=== PATIENT | female | born 1965 | race African-American/Black ===

== ENCOUNTER → 2016-10-09 | Outpatient (CLI) | payer BC | LOC: WI 08:02 | PROVIDERS: ATTEND Advanced Practice Midwife | DX: Z12.31 Encounter for screening mammogram for malignant neoplasm of breast (principal) | CPT/HCPCS: 77067; G0202 ==

== ENCOUNTER → 2017-10-20 | Outpatient (CLI) | payer BC ==
--- NOTE | 2017-10-20 09:26 | WOMENS IMAGING REPORT ---
EXAM DESCRIPTION: BILAT SCREENING MAMMO W/CAD COMPLETED DATE/TIME: 10/20/2017 8:20 am REASON FOR STUDY: ROUTINE SCREENING;Z12.31 Z12.31 ENCNTR SCREEN MAMMOGRAM FOR MALIGNANT NEOPLASM OF ZOHREH COMPARISON: [id number] TECHNIQUE: Standard craniocaudal and mediolateral oblique views of each breast recorded using [employer] acquisition. LIMITATIONS: None. FINDINGS: No masses, calcifications or architectural distortion. No areas of suspicion. Read with the assistance of CAD. .[facility] - R2 Cenova Version 1.3 .[facility] - R2 Cenova Version 1.3 .[facility] - R2 Cenova Version 2.4 .[facility] - R2 Cenova Version 2.4 .[facility] - R2 [employer] Version 9.2 IMPRESSION: NORMAL MAMMOGRAM. BIRADS 1. BREAST DENSITY: b. There are scattered areas of fibroglandular density. BIRAD: 1 NEGATIVE RECOMMENDATION: ROUTINE SCREENING COMMENT: The patient has been notified of the results by letter per SA requirements. Additional no tification policies are in place for contacting patient with suspicious or incomplete findings. Quality ID #225: The [employer] recommends an annual screening mammogram for women aged 40 years or over. This facility utilizes a reminder system to ensure that all patients receive reminder letters, and/or direct phone calls for appointments. This includes reminders for routine scr eening mammograms, diagnostic mammograms, or other Breast Imaging Interventions when appropriate. Th is patient will be placed in the appropriate reminder system. The [employer] (ACR) has developed recommendations for screening MRI of the breast s in certain patient populations, to be used in conjunction with mammography. Breast MRI surveillanc e may be appropriate for women with more than 20% lifetime risk of developing breast cancer as deter mined by genetic testing, significant family history of the disease, or history of mantle radiation f or Hodgkins Disease. ACR Practice Guidelines 2008. TECHNICAL DOCUMENTATION: FINDING NUMBER: (1) ASSESSMENT: (1) JOB ID: [id number] [employer]- All Rights Reserved Reading location - IP/workstation name: [facility]
== END ==
LOC: WI 08:28
PROVIDERS: ATTEND Midwife
DX: Z12.31 Encounter for screening mammogram for malignant neoplasm of breast (principal)
CPT/HCPCS: 77067

== ENCOUNTER 2017-11-27 09:57 | Inpatient (IN) | payer BC ==
[2017-11-27] MEDS ORDERED: ONDANSETRON HCL INJ/PF 4 MG/2 ML SDV IV ONE (10:22)
[2017-11-27] MEDS ORDERED: HYDROMORPHONE HCL INJ/PF 2 MG/ML AMPULE IV ONE ×2 (10:22→12:20)
[2017-11-27 10:25] LABS: ABSOLUTE LYMPHOCYTES (AUTO) 0.9 10^3/uL (0.5-4.7); ABSOLUTE MONOCYTES (AUTO) 0.3 10^3/uL (0.1-1.4); ABSOLUTE NEUT (AUTO) 11.9 10^3/uL (1.7-8.2); BASOPHILS % (AUTO) 0.1 % (0-2); LYMPHOCYTES % (AUTO) 6.9 % (13-45); MEAN CORPUSCULAR HEMOGLOBIN 30.3 pg (27.0-33.4); MEAN CORPUSCULAR HGB CONC 34.3 g/dL (32.0-36.0); MEAN CORPUSCULAR VOLUME 89 fl (80-97); MONOCYTES % (AUTO) 2.1 % (3-13); PLATELET COUNT 347 10^3/uL (150-450); RED BLOOD COUNT 4.29 10^6/uL (3.72-5.28); RED CELL DISTRIBUTION WIDTH 13.5 % (11.5-14.0); SEGMENTED NEUTROPHILS % (AUTO) 90.9 % (42-78); TOTAL CELLS COUNTED % (AUTO) 100 %; WHITE BLOOD COUNT 13.1 10^3/uL (4.0-10.5)
--- NOTE | 2017-11-27 10:43 | ER Document Report ---
ED GI/ - General Chief Complaint: Abdominal Pain Stated Complaint: ABDOMINAL PAIN Time Seen by Provider: 11/27/17 10:17 Mode of Arrival: Medic Information source: Patient TRAVEL OUTSIDE OF THE [place] IN LAST 30 DAYS: No - HPI Patient complains to provider of: Abdominal pain Notes: 11/27/17 10:39 Patient is here with complaints of abdominal pain with nausea vomiting. She states that the pain is in the epigastric area. Has been constant and quite severe. She was seen at an outside facility and was transferred here due to pain. She denies any chest pain or shortness of breath. She denies fevers. She denies diarrhea. No dysuria or hematuria. No rash. No injury. No headache, blurred vision, numbness, tingling, weakness. No other complaints at this time. - Related Data Allergies/Adverse Reactions: No Known Allergies Allergy (Verified 11/27/17 11:05) Past Medical History - Social History Smoking Status: Unknown if Ever Smoked Family History: Reviewed & Not Pertinent Review of Systems - Review of Systems -: Yes All other systems reviewed and negative Physical Exam - Vital signs Vitals: Temp Pulse BP Pulse Ox 97.5 F 83 127/70 H 100 11/27/17 10:20 11/27/17 10:20 11/27/17 10:20 11/27/17 10:20 - Notes Notes: GENERAL: alert, cooperative, nontoxic, no distress. Appears quite uncomfortable. HEAD: normocephalic, atraumatic EYES: conjunctiva pink without discharge, no external redness or swelling. EARS: no external swelling, no external redness NOSE: atraumatic, no external swelling MOUTH/THROAT: mucous membranes moist and pink, posterior pharynx without erythema, swelling, exudate. No trismus or drooling. NECK: soft, supple, full range of motion, no meningismus. CHEST: no distress, lungs clear and equal throughout. No wheezing, rales, rhonchi. CARDIAC: regular rate and rhythm, no murmur, normal capillary refill, normal pulses. No peripheral edema noted. ABDOMEN: Soft, tender in the epigastric and right upper quadrant with voluntary guarding. No rebound tenderness. No tenderness to the lower abdomen. No obvious mass. BACK: full range of motion, no CVA tenderness. EXTREMITIES: full range of motion of all extremities. No redness, no swelling. NEURO: alert and oriented x 3, no focal deficits, full range of motion of all extremities. PYSCH: appropriate mood, affect. Patient is cooperative. SKIN: pink, warm, dry, no rash. Course - Re-evaluation Re-evalutation: 11/27/17 11:05 Patient is resting comfortably at this time. Pain is significantly improved. I have updated her on current lab findings at this time. Potassium is low at 2.6, this will be replaced. Ultrasound currently pending. 11/27/17 12:48 Patient is nontoxic appearing with stable vitals. The patient is here with complaints of upper abdominal pain with nausea vomiting. No fever. Has an elevated white count of 13. Potassium was low at 2.6. LFTs are all normal. Ultrasound shows multiple gallstones. Lipase is elevated over 500. At this point patient appears to have gallstone pancreatitis. I have discussed the case with Dr. King the surgeon, he will come to the emergency department to evaluate the patient. He recommended IV fluid bolus, IV fluids at 125 an hour and n.p.o. status. 11/27/17 14:15 Patient was seen and evaluated by Dr. King. He would like to admit the patient to the hospital for further evaluation and management. - Vital Signs Vital signs: Temp Pulse Resp BP Pulse Ox 97.5 F 83 12 142/81 H 99 11/27/17 10:20 11/27/17 10:20 11/27/17 13:01 11/27/17 13:01 11/27/17 13:01 - Laboratory Result Diagrams: 11/27/17 10:12 11/27/17 10:12 Laboratory results interpreted by me: 11/27/17 11/27/17 11/27/17 10:12 10:12 13:18 WBC 13.1 H Seg Neutrophils % 90.9 H Lymphocytes % 6.9 L Monocytes % 2.1 L Absolute Neutrophils 11.9 H Potassium 2.6 L* Glucose 147 H Lipase 517.6 H Urine Ketones 20 H Urine Ascorbic Acid 20 H - Diagnostic Test Radiology reviewed: Image reviewed, Reports reviewed - Chest x-ray unremarkable. Right upper quadrant ultrasound shows multiple gallstones. - EKG Interpretation by Me EKG shows normal: Sinus rhythm, Anderson, Intervals, QRS Complexes Rate: Normal When compared to previous EKG there are: Previous EKG unavailable Additional EKG results interpreted by me: 11/27/17 11:05 Slight flattening of the T waves in lead III as well as aVF and V4 V5. No EKGs to compare this to. Discharge - Discharge Clinical Impression: Acute gallstone pancreatitis Condition: Stable Disposition: ADMITTED INPATIENT Admitting Provider: Surgicalist - [facility] Unit Admitted: Surgical Floor
[2017-11-27 10:46] LABS: ALANINE AMINOTRANSFERASE 33 U/L (9-52); ALBUMIN 4.3 g/dL (3.5-5.0); ALKALINE PHOSPHATASE 45 U/L (38-126); ANION GAP 12 (5-19); ASPARTATE AMINO TRANSFERASE 30 U/L (14-36); BILIRUBIN,DIRECT 0.2 mg/dL (0.0-0.4); BILIRUBIN,TOTAL 0.5 mg/dL (0.2-1.3); BLOOD UREA NITROGEN 14 mg/dL (7-20); CALCIUM 9.5 mg/dL (8.4-10.2); CARBON DIOXIDE 29 mmol/L (22-30); CHLORIDE 99 mmol/L (98-107); GLUCOSE 147 mg/dL (75-110); LIPASE 517.6 U/L (23-300); SODIUM 139.7 mmol/L (137-145); TOTAL PROTEIN 7.7 g/dL (6.3-8.2)
[2017-11-27 10:52] LABS: POTASSIUM 2.6 mmol/L (3.6-5.0)
[2017-11-27] MEDS ORDERED: POTASSIUM CHLORIDE 10 MEQ TABLET.SA PO ONE (11:01)
--- NOTE | 2017-11-27 11:11 | RADIOLOGY REPORT (SQ) ---
EXAM DESCRIPTION: CHEST SINGLE VIEW COMPLETED DATE/TIME: 11/27/2017 10:52 am REASON FOR STUDY: epigastric, ruq pain COMPARISON: None. EXAM PARAMETERS: NUMBER OF VIEWS: One view. TECHNIQUE: Single frontal radiographic view of the chest acquired. RADIATION DOSE: NA LIMITATIONS: None. FINDINGS: LUNGS AND PLEURA: No opacities, masses or pneumothorax. No pleural effusion. MEDIASTINUM AND HILAR STRUCTURES: No masses. Contour normal. HEART AND VASCULAR STRUCTURES: Heart normal in size. Normal vasculature. BONES: No acute findings. HARDWARE: None in the chest. OTHER: No other significant finding. IMPRESSION: NO ACUTE RADIOGRAPHIC FINDING IN THE CHEST. TECHNICAL DOCUMENTATION: JOB ID: [id number] [employer]- All Rights Reserved Reading location - IP/workstation name: [email or web address]
--- NOTE | 2017-11-27 11:50 | RADIOLOGY REPORT (SQ) ---
EXAM DESCRIPTION: U/S ABDOMEN LIMITED W/O DOP COMPLETED DATE/TIME: 11/27/2017 11:39 am REASON FOR STUDY: epigastric, ruq pain COMPARISON: None. TECHNIQUE: Dynamic and static grayscale images acquired of the abdomen and recorded on PACS. Additio nal selected color Doppler and spectral images recorded. LIMITATIONS: None. FINDINGS: PANCREAS: No masses. Visualized pancreatic duct normal caliber. LIVER: No masses. Echotexture normal. LIVER VASCULATURE: Normal directional flow of the main portal vein. GALLBLADDER: There is increased echogenicity in the gallbladder with distal shadowing most consistent with multiple gallstones. Normal wall thickness. No pericholecystic fluid. ULTRASOUND-DETECTED CANAS'S SIGN: Negative. INTRAHEPATIC DUCTS AND COMMON DUCT: CBD and intrahepatic ducts normal caliber. No filling defects. INFERIOR VENA CAVA: Normal flow. AORTA: No aneurysm. RIGHT KIDNEY: 12 cm in length. Normal echogenicity. No solid or suspicious masses. No hydronephrosis . No calcifications. PERITONEAL AND RIGHT PLEURAL SPACE: No ascites or effusions. OTHER: No other significant findings. IMPRESSION: Findings consistent with multiple gallstones. No other significant intra-abdominal abno rmalities were identified. Other findings as noted above TECHNICAL DOCUMENTATION: JOB ID: [id number] [employer]- All Rights Reserved Reading location - IP/workstation name: [email or web address]
[2017-11-27] MEDS ORDERED: NORMAL SALINE 1000 ML 1,000 ML IV PRN ×2 (12:46→15:17)
[2017-11-27] MEDS ORDERED: NORMAL SALINE 1000 ML 1,000 ML IV ONE (12:46)
--- NOTE | 2017-11-27 13:37 | EKG REPORT ---
SEVERITY:- ABNORMAL ECG - SINUS RHYTHM PROBABLE LEFT ATRIAL ABNORMALITY NONSPECIFIC T ABNORMALITIES, LATERAL LEADS : Confirmed by: Cortez Gil MD 27-Nov-2017 13:36:32
[2017-11-27 13:43] LABS: APPEARANCE,URINE SLIGHTLY-CLOUDY; BILIRUBIN,URINE NEGATIVE (NEGATIVE); COLOR,URINE YELLOW; GLUCOSE, URINE NEGATIVE (NEGATIVE); KETONES,URINE 20 mg/dL (NEGATIVE); LEUKOCYTE ESTERASE,URINE NEGATIVE (NEGATIVE); NITRITE,URINE NEGATIVE (NEGATIVE); PROTEIN,URINE NEGATIVE (NEGATIVE); URINE SPECIFIC GRAVITY 1.023; UROBILINOGEN,URINE NEGATIVE mg/dL (<2.0)
--- NOTE | 2017-11-27 14:24 | PDOC H&P ---
History of Present Illness Admission Date/PCP: 11/27/17 Patient complains of: epigastric pain, n/v History of Present Illness: VASQUEZ DIXON is a 52 year old female with HTN who c/o sudden onset of epigastric pain this AM radiated to the back, intense nausea and vomiting. ER workup included a GB ultrasound with multiple gallstones and an elevated lipase. Currently, she is feeling better and she is almost pain free. Past Medical History Cardiac Medical History: Reports: Hypertension Past Surgical History Past Surgical History: Reports: Tubal Ligation Social History Smoking Status: Never Smoker Frequency of Alcohol Use: Rare Hx Recreational Drug Use: No Family History Parental Family History Reviewed: No Children Family History Reviewed: No Sibling(s) Family History Reviewed.: No Medication/Allergy Allergies/Adverse Reactions: No Known Allergies Allergy (Verified 11/27/17 11:05) Physical Exam Vital Signs: Temp Pulse Resp BP Pulse Ox 97.5 F 83 12 142/81 H 99 11/27/17 10:20 11/27/17 10:20 11/27/17 13:01 11/27/17 13:01 11/27/17 13:01 Intake & Output 11/26/17 11/27/17 11/28/17 06:59 06:59 06:59 Weight 69.853 kg General appearance: PRESENT: no acute distress, cooperative Head exam: PRESENT: atraumatic Eye exam: PRESENT: EOMI Mouth exam: PRESENT: moist Neck exam: PRESENT: full ROM Respiratory exam: PRESENT: clear to auscultation violeta Cardiovascular exam: PRESENT: RRR GI/Abdominal exam: PRESENT: soft, tenderness - right upper quadrant Extremities exam: PRESENT: full ROM Musculoskeletal exam: PRESENT: full ROM Neurological exam: PRESENT: alert, altered Results Laboratory Results: 11/27/17 10:12 11/27/17 10:12 11/27/17 11/27/17 11/27/17 10:12 10:12 13:18 WBC 13.1 H RBC 4.29 Hgb 13.0 Hct 38.0 MCV 89 MCH 30.3 MCHC 34.3 RDW 13.5 Plt Count 347 Seg Neutrophils % 90.9 H Lymphocytes % 6.9 L Monocytes % 2.1 L Eosinophils % 0.0 Basophils % 0.1 Absolute Neutrophils 11.9 H Absolute Lymphocytes 0.9 Absolute Monocytes 0.3 Absolute Eosinophils 0.0 Absolute Basophils 0.0 Sodium 139.7 Potassium 2.6 L* Chloride 99 Carbon Dioxide 29 Anion Gap 12 BUN 14 Creatinine 0.55 Est GFR ( Amer) > 60 Est GFR (Non-Af Amer) > 60 Glucose 147 H Calcium 9.5 Total Bilirubin 0.5 AST 30 ALT 33 Alkaline Phosphatase 45 Total Protein 7.7 Albumin 4.3 Lipase 517.6 H Urine Color YELLOW Urine Appearance SLIGHTLY-CLOUDY Urine pH 6.0 Ur Specific Friedens 1.023 Urine Protein NEGATIVE Urine Glucose (UA) NEGATIVE Urine Ketones 20 H Urine Blood NEGATIVE Urine Nitrite NEGATIVE Ur Leukocyte Esterase NEGATIVE Urine WBC (Auto) 3 Urine RBC (Auto) 7 11/27/17 10:12 Troponin I < 0.012 Impressions: Abdomen Ultrasound 11/27/17 10:22 IMPRESSION: Findings consistent with multiple gallstones. No other significant intra-abdominal abnormalities were identified. Other findings as noted above Chest X-Ray 11/27/17 10:22 IMPRESSION: NO ACUTE RADIOGRAPHIC FINDING IN THE CHEST. Assessment & Plan - Diagnosis (1) Gallstone pancreatitis Is this a current diagnosis for this admission?: Yes Plan: A/ Gallstone pancreatitis Cholelithiasis HTN Slight Leukocytosis P/ Admit NPO except for ice chips NS 125 mL/hr Morphine 1 mg IVP q2 hrs prn pain Zosyn 3.375 gr IVPB q6 daily monitoring of CBC and CMP with lipase When the pancreatitis improves, the patient can undergo laparoscopic cholecystectomy, possible open, possible cholangiogram during this hospitalization
[2017-11-27] MEDS ORDERED: PIPERACILLIN/TAZOBACTAM 3.375 GM VIAL IV ONE (14:28)
[2017-11-27] MEDS ORDERED: ONDANSETRON HCL INJ/PF 4 MG/2 ML SDV IV PRN (15:16)
[2017-11-27] MEDS: MORPHINE SULFATE 10 MG/ML INJ IV PRN ×2 (15:45→21:05)
[2017-11-27] MEDS: HEPARIN SOD (PORCINE) 5,000 UNIT/ML 1 ML SYRINGE SUBCUT SCH (19:14)
[2017-11-27] MEDS ORDERED: MORPHINE SULFATE 10 MG/ML INJ ONE (20:57)
[2017-11-27] MEDS: PIPERACILLIN SODIUM/TAZOBACTAM 3.375 GM in NORMAL SALINE 100 ML IV SCH (21:31)
[2017-11-27] MEDS ORDERED: PIPERACILLIN SODIUM/TAZOBACTAM 3.375 GM in NORMAL SALINE 100 ML IV SCH (22:00)
[2017-11-27] MEDS ORDERED: HEPARIN SOD (PORCINE) 5,000 UNIT/ML 1 ML SYRINGE SUBCUT SCH (22:00)
[2017-11-28] MEDS: PIPERACILLIN SODIUM/TAZOBACTAM 3.375 GM in NORMAL SALINE 100 ML IV SCH ×3 (05:41→21:35)
[2017-11-28] MEDS: HEPARIN SOD (PORCINE) 5,000 UNIT/ML 1 ML SYRINGE SUBCUT SCH (05:41)
[2017-11-28 06:27] LABS: HEMATOCRIT 36.8 % (36.0-47.0); HEMOGLOBIN 12.7 g/dL (12.0-15.5); MEAN CORPUSCULAR HEMOGLOBIN 30.5 pg (27.0-33.4); MEAN CORPUSCULAR HGB CONC 34.6 g/dL (32.0-36.0); MEAN CORPUSCULAR VOLUME 88 fl (80-97); PLATELET COUNT 301 10^3/uL (150-450); RED BLOOD COUNT 4.18 10^6/uL (3.72-5.28); RED CELL DISTRIBUTION WIDTH 13.4 % (11.5-14.0)
[2017-11-28 06:54] LABS: ALANINE AMINOTRANSFERASE 60 U/L (9-52); ALBUMIN 3.5 g/dL (3.5-5.0); ALKALINE PHOSPHATASE 46 U/L (38-126); ANION GAP 9 (5-19); ASPARTATE AMINO TRANSFERASE 45 U/L (14-36); BILIRUBIN,DIRECT 0.2 mg/dL (0.0-0.4); BLOOD UREA NITROGEN 7 mg/dL (7-20); CALCIUM 8.5 mg/dL (8.4-10.2); CARBON DIOXIDE 28 mmol/L (22-30); CHLORIDE 104 mmol/L (98-107); GLUCOSE 105 mg/dL (75-110); LIPASE 107.1 U/L (23-300); POTASSIUM 3.3 mmol/L (3.6-5.0); SODIUM 141.2 mmol/L (137-145); TOTAL PROTEIN 6.4 g/dL (6.3-8.2)
[2017-11-28] MEDS ORDERED: ROCURONIUM BROMIDE INJ 50 MG/5 ML VIAL IV ONE (09:11)
[2017-11-28] MEDS ORDERED: SUCCINYLCHOLINE CHLORIDE INJ 200 MG/10 ML VIAL ONE (09:11)
--- NOTE | 2017-11-28 10:31 | PDOC PROGRESS REPORT ---
Subjective Progress Note for:: 11/28/17 Subjective:: patient comfortable Reason For Visit: ACUTE GALLSTONE PANCREATITIS Physical Exam Vital Signs: Temp Pulse Resp BP Pulse Ox 98.4 F 88 18 128/78 H 98 11/28/17 07:35 11/28/17 07:35 11/28/17 07:35 11/28/17 07:35 11/28/17 07:35 General appearance: PRESENT: no acute distress Respiratory exam: PRESENT: clear to auscultation violeta Cardiovascular exam: PRESENT: RRR GI/Abdominal exam: PRESENT: soft Results Laboratory Results: 11/28/17 05:57 11/28/17 05:57 11/28/17 11/28/17 05:57 05:57 WBC 13.0 H RBC 4.18 Hgb 12.7 Hct 36.8 MCV 88 MCH 30.5 MCHC 34.6 RDW 13.4 Plt Count 301 Sodium 141.2 Potassium 3.3 L Chloride 104 Carbon Dioxide 28 Anion Gap 9 BUN 7 Creatinine 0.60 Est GFR ( Amer) > 60 Est GFR (Non-Af Amer) > 60 Glucose 105 Calcium 8.5 Total Bilirubin 1.0 AST 45 H ALT 60 H Alkaline Phosphatase 46 Total Protein 6.4 Albumin 3.5 Lipase 107.1 Impressions: Abdomen Ultrasound 11/27/17 10:22 IMPRESSION: Findings consistent with multiple gallstones. No other significant intra-abdominal abnormalities were identified. Other findings as noted above Chest X-Ray 11/27/17 10:22 IMPRESSION: NO ACUTE RADIOGRAPHIC FINDING IN THE CHEST. Assessment & Plan - Diagnosis (1) Gallstone pancreatitis Is this a current diagnosis for this admission?: Yes - Plan Summary Plan Summary: A/ Gallstone pancreatitits Cholelithiasis VSS, AF LFT' normal except for slight increased AST/ALT Lipase normal PE unremarkable P/ laparoscopic cholecystectomy, possible open, possible cholangiogram Procedure, risks, benefits, complications, including bleeding from the liver and or injury of the CBD have been explained to the patient her questions were answered and she decides to proceed
[2017-11-28] MEDS ORDERED: MIDAZOLAM 2 MG/2 ML INJ ONE (11:01)
[2017-11-28] MEDS ORDERED: DEXAMETHASONE SOD PHOSPHATE INJ 4 MG/1 ML VIAL ONE (11:01)
[2017-11-28] MEDS ORDERED: FENTANYL CITRATE INJ/PF 100 MCG/2 ML AMPUL ONE ×2 (11:01→14:18)
[2017-11-28] MEDS ORDERED: ONDANSETRON HCL INJ/PF 4 MG/2 ML SDV ONE (11:01)
[2017-11-28] MEDS ORDERED: PROPOFOL INJ 200 MG/20 ML VIAL IV ONE (11:02)
[2017-11-28] MEDS ORDERED: ACETAMINOPHEN 100 ML IV ONE (11:02)
[2017-11-28] MEDS ORDERED: BUPIVACAINE HCL 0.5%-EPI 1:200000 INJ/PF 30 ML VIAL ONE (11:51)
[2017-11-28] MEDS ORDERED: DIPHENHYDRAMINE HCL 50 MG/ML VIAL IV PRN (12:05)
[2017-11-28] MEDS ORDERED: FENTANYL CITRATE INJ/PF 100 MCG/2 ML AMPUL IV PRN ×3 (12:05)
[2017-11-28] MEDS ORDERED: MEPERIDINE HCL/PF INJ 25 MG/1 ML DISP.SYRIN IV PRN (12:05)
[2017-11-28] MEDS ORDERED: PROMETHAZINE HCL INJ 25 MG/1 ML VIAL IV PRN ×2 (12:05)
--- NOTE | 2017-11-28 14:11 | Operative Report ---
Operative Report DATE OF SURGERY: 11/28/17 PREOPERATIVE DIAGNOSIS: acute cholecystitis. cholelithiasis. Gallstone pancreatitis POSTOPERATIVE DIAGNOSIS: same OPERATION: laparosocic cholecystectomy SURGEON: JAKE PINEDA ANESTHESIA: GA - plus local TISSUE REMOVED OR ALTERED: gallbalddsilvana COMPLICATIONS: none ESTIMATED BLOOD LOSS: < 5 mL INTRAOPERATIVE FINDINGS: severely thickened gallbladder, fille with bile PROCEDURE: Laparoscopic cholecystectomy
[2017-11-28] MEDS: AMLODIPINE BESYLATE 5 MG TABLET PO SCH (14:20)
[2017-11-28] MEDS: LOSARTAN POTASSIUM 50 MG TABLET PO SCH (14:20)
[2017-11-28] MEDS: HYDROCHLOROTHIAZIDE 25 MG TABLET PO SCH (14:20)
[2017-11-28] MEDS ORDERED: KETOROLAC TROMETHAMINE INJ/PF 30 MG/1 ML SDV ONE (14:39)
--- NOTE | 2017-11-28 15:01 | EKG REPORT ---
SEVERITY:- ABNORMAL ECG - SINUS RHYTHM PROBABLE LEFT ATRIAL ABNORMALITY PROBABLE LEFT VENTRICULAR HYPERTROPHY : Confirmed by: Cortez Gil MD 28-Nov-2017 15:00:50
[2017-11-28] MEDS: FAMOTIDINE INJ/PF 20 MG/2 ML SDV IV SCH (18:54)
--- NOTE | 2017-11-28 20:53 | OPERATIVE REPORT E ---
Operative Report NAME: VASQUEZ DIXON : 1965 AGE: 52Y DATE OF SURGERY: 11/28/2017 ROOM: 206 PREOPERATIVE DIAGNOSES: 1. Acute cholecystitis with cholelithiasis. 2. Gallstone pancreatis. POSTOPERATIVE DIAGNOSES: 1. Acute cholecystitis with cholelithiasis. 2. Gallstone pancreatitis. PROCEDURE: Laparoscopic cholecystectomy. SURGEON: JAKE PINEDA M.D. MANUFACTURING QUALITY ENGINEER: None. ESTIMATED BLOOD LOSS: Less than 5 mL. COMPLICATIONS: None. FLUIDS: 700 mL. URINE OUTPUT: Not monitored DRAIN: 10 mm flat Victor Hugo-Rahman drain INDICATION AND FINDINGS: The patient is a healthy 52-year-old obese female, who presented to the emergency room yesterday with a history of abdominal pain with elevated liver enzymes and lipase as per gallstone pancreatitis. An ultrasound of the gallbladder was done revealing several gallstones and normal size of the common bile duct and one stone impacted inside the gallbladder neck. The liver enzymes were almost normal today with a normal lipase. The patient was asymptomatic and a decision was made to take him to surgery today for laparoscopic cholecystectomy, possible open, possible cholangiogram. Procedure risks, benefits, and complications were explained to the patient including possibility of liver injury or injury to the common bile duct, which may require outside repair. The patient's questions were answered. She decided to proceed. DESCRIPTION OF PROCEDURE: Procedure was done in the operating room. The patient was placed in the supine position and general anesthesia was induced by endotracheal intubation. Her abdomen was prepped and draped in the usual fashion. An incision was made just above the umbilicus and the skin was tethered with towel clips and a 5 mm port with Optiview adaptor, and the scope were inserted through the abdominal wall and into the peritoneal cavity. A CO2 pneumoperitoneum was then established. Under direct visualization, three additional ports, a 12 mm and two 5 mm ports were placed in the epigastrium and right lateral quadrant of the abdomen. The patient was placed in a reverse Trendelenburg position with the right side elevated. The gallbladder was grasped at the level of the fundus and found to be very thickened and inflamed. At this point, a laparoscopic needle was inserted through the epigastric port, connected to a 60 mL syringe and about 40 mL of green bile was aspirated. This was sent for aerobic and anaerobic culture and for Gram stain. Once the gallbladder was emptied, this was grasped at the level of the fundus, elevated and retroflexed. The cystic neck was then grasped and pulled toward the patient's right to expose the triangle of Calot. The critical view of safety was painstakingly obtained by dividing the peritoneal attachments and the gallbladder neck and body both medially and laterally, and dissection was continued more distal until the cystic duct was identified. Once the critical view of safety was obtained, an opening was obtained posterior to the cystic duct. This was circumferentially dissected and found to be very thickened and inflamed because of surrounding inflammation. A decision was made to divide the cystic duct by using a laparoscopic stapler. This was divided with a laparoscopic endo-JAYLENE with bue load. After this, the gallbladder was easily dissected off the liver bed using a hook cautery and extracted from the peritoneal cavity using an Endobag through the epigatrium port site. The CO2 pneumoperitoneum was then reestablished. The liver bed was examined and found to be free from active bleeding. The abdominal wall was irrigated with 2 L of warm normal saline, which was almost completely aspirated. Under direct visualization, using a fascial closure device, a xllrfa-ab-dyrew 0-Vicryl suture was placed through the epigastric port and left untied. Through the same 12 mm port, a 10 mm flat Victor Hugo-Rahman drain was inserted and set in the right upper quadrant port site, placed under the liver in the gallbladder fossa. At this point, all instruments were removed, the ports were removed, the CO2 pneumoperitoneum was released, and the drain was secured to the skin with a 2-0 nylon suture. The fascial defect of the umbilicus was closed with the previously placed 0-Vicryl suture. All ports were then removed and the skin was closed with 4-0 Vicryl running subcuticular suture with Dermabond applied. The patient tolerated the procedure well, was extubated and transferred to the recovery room in satisfactory condition. DICTATING PHYSICIAN: JAKE PINEDA M.D. [id number] PHY#: [id number] ID: [id number] JOB#: [id number] ACCT: [id number] cc:JAKE PINEDA M.D. > MTDD
[2017-11-28] MEDS: MORPHINE SULFATE 10 MG/ML INJ IV PRN (21:36)
[2017-11-29] MEDS: FAMOTIDINE INJ/PF 20 MG/2 ML SDV IV SCH (06:01)
[2017-11-29] MEDS: PIPERACILLIN SODIUM/TAZOBACTAM 3.375 GM in NORMAL SALINE 100 ML IV SCH ×3 (06:01→21:39)
[2017-11-29] MEDS ORDERED: MORPHINE SULFATE 10 MG/ML INJ ONE (06:10)
[2017-11-29] MEDS: MORPHINE SULFATE 10 MG/ML INJ IV PRN ×2 (06:14→11:12)
[2017-11-29 07:36] LABS: ABSOLUTE LYMPHOCYTES (AUTO) 2.5 10^3/uL (0.5-4.7); ABSOLUTE MONOCYTES (AUTO) 0.6 10^3/uL (0.1-1.4); ABSOLUTE NEUT (AUTO) 7.6 10^3/uL (1.7-8.2); BASOPHILS % (AUTO) 0.3 % (0-2); EOSINOPHILS % (AUTO) 0.2 % (0-6); HEMATOCRIT 31.2 % (36.0-47.0); LYMPHOCYTES % (AUTO) 22.9 % (13-45); MEAN CORPUSCULAR HEMOGLOBIN 31.1 pg (27.0-33.4); MEAN CORPUSCULAR HGB CONC 35.1 g/dL (32.0-36.0); MEAN CORPUSCULAR VOLUME 89 fl (80-97); PLATELET COUNT 265 10^3/uL (150-450); RED BLOOD COUNT 3.52 10^6/uL (3.72-5.28); RED CELL DISTRIBUTION WIDTH 13.6 % (11.5-14.0); SEGMENTED NEUTROPHILS % (AUTO) 70.6 % (42-78); TOTAL CELLS COUNTED % (AUTO) 100 %; WHITE BLOOD COUNT 10.7 10^3/uL (4.0-10.5)
[2017-11-29 07:56] LABS: ALANINE AMINOTRANSFERASE 90 U/L (9-52); ALBUMIN 2.8 g/dL (3.5-5.0); ALKALINE PHOSPHATASE 50 U/L (38-126); ANION GAP 7 (5-19); ASPARTATE AMINO TRANSFERASE 49 U/L (14-36); BILIRUBIN,DIRECT 0.5 mg/dL (0.0-0.4); BILIRUBIN,TOTAL 0.7 mg/dL (0.2-1.3); BLOOD UREA NITROGEN 10 mg/dL (7-20); CALCIUM 7.6 mg/dL (8.4-10.2); CARBON DIOXIDE 23 mmol/L (22-30); CHLORIDE 112 mmol/L (98-107); GLUCOSE 83 mg/dL (75-110); POTASSIUM 3.2 mmol/L (3.6-5.0); TOTAL PROTEIN 5.7 g/dL (6.3-8.2)
[2017-11-29] MEDS: HEPARIN SOD (PORCINE) 5,000 UNIT/ML 1 ML SYRINGE SUBCUT SCH ×2 (09:22→17:13)
[2017-11-29] MEDS: LOSARTAN POTASSIUM 50 MG TABLET PO SCH (09:23)
[2017-11-29] MEDS: AMLODIPINE BESYLATE 5 MG TABLET PO SCH (09:24)
[2017-11-29] MEDS: HYDROCHLOROTHIAZIDE 25 MG TABLET PO SCH (09:24)
[2017-11-29] MEDS ORDERED: ACETAMINOPHEN 325 MG TABLET PO ONE (12:54)
--- NOTE | 2017-11-29 12:59 | PDOC PROGRESS REPORT ---
Subjective Progress Note for:: 11/29/17 Subjective:: comfortable, tolerating po well Reason For Visit: ACUTE GALLSTONE PANCREATITIS,11/28/17 HAD A Physical Exam Vital Signs: Temp Pulse Resp BP Pulse Ox 98.8 F 79 18 109/65 96 11/29/17 11:10 11/29/17 11:10 11/29/17 11:10 11/29/17 11:10 11/29/17 11:10 Intake & Output 11/28/17 11/29/17 11/30/17 06:59 06:59 06:59 Intake Total 2100 Output Total 1700 870 Balance -1700 1230 General appearance: PRESENT: no acute distress Respiratory exam: PRESENT: clear to auscultation violeta Cardiovascular exam: PRESENT: RRR GI/Abdominal exam: PRESENT: soft, other - all incisions are c/d/i Results Laboratory Results: 11/29/17 06:57 11/29/17 06:57 11/29/17 11/29/17 06:57 06:57 WBC 10.7 H RBC 3.52 L Hgb 11.0 L Hct 31.2 L MCV 89 MCH 31.1 MCHC 35.1 RDW 13.6 Plt Count 265 Seg Neutrophils % 70.6 Lymphocytes % 22.9 Monocytes % 6.0 Eosinophils % 0.2 Basophils % 0.3 Absolute Neutrophils 7.6 Absolute Lymphocytes 2.5 Absolute Monocytes 0.6 Absolute Eosinophils 0.0 Absolute Basophils 0.0 Sodium 142.0 Potassium 3.2 L Chloride 112 H Carbon Dioxide 23 Anion Gap 7 BUN 10 Creatinine 0.60 Est GFR ( Amer) > 60 Est GFR (Non-Af Amer) > 60 Glucose 83 Calcium 7.6 L Total Bilirubin 0.7 AST 49 H ALT 90 H Alkaline Phosphatase 50 Total Protein 5.7 L Albumin 2.8 L Lipase 65.0 Impressions: Abdomen Ultrasound 11/27/17 10:22 IMPRESSION: Findings consistent with multiple gallstones. No other significant intra-abdominal abnormalities were identified. Other findings as noted above Chest X-Ray 11/27/17 10:22 IMPRESSION: NO ACUTE RADIOGRAPHIC FINDING IN THE CHEST. Assessment & Plan - Diagnosis (1) Gallstone pancreatitis Is this a current diagnosis for this admission?: Yes (2) Acute cholecystitis with chronic cholecystitis Is this a current diagnosis for this admission?: Yes - Plan Summary Plan Summary: A/ POD#1 after laparoscopic cholecystectomy for acute on chronic cholecystitis with cholelithiasis VSS, AF DAVIDA output 85 mL blood work shows normal CBC Slight elevated ALT/AST with normal total bilirubin Abdomen soft regular diet tolerated P/ Continue IV abx discharge tomorrow
[2017-11-29] MEDS ORDERED: ACETAMINOPHEN 325 MG TABLET PO PRN (13:35)
[2017-11-29] MEDS ORDERED: TRAMADOL HCL 50 MG TABLET PO PRN (20:24)
[2017-11-29] MEDS ORDERED: BISACODYL 10 MG SUPP.RECT PR ONE (21:00)
[2017-11-29] MEDS ORDERED: FAMOTIDINE 20 MG TABLET PO SCH (22:00)
[2017-11-30] MEDS: PIPERACILLIN SODIUM/TAZOBACTAM 3.375 GM in NORMAL SALINE 100 ML IV SCH (05:05)
[2017-11-30] MEDS: HEPARIN SOD (PORCINE) 5,000 UNIT/ML 1 ML SYRINGE SUBCUT SCH (05:06)
[2017-11-30 09:40] VITALS: BP 126/70
--- NOTE | 2017-11-30 22:09 | DISCHARGE SUMMARY E ---
Discharge Summary NAME: VASQUEZ DIXON : 1965 AGE: 52Y ADMITTED: 11/27/2017 DISCHARGED: 11/30/2017 FINAL DIAGNOSIS: 1. Acute cholecystitis, cholelithiasis. 2. Status post laparoscopic cholecystectomy by Dr. King. SUMMARY OF HOSPITALIZATION: The patient is a 52-year-old female who presents to the emergency department by ground rescue complaining of abdominal pain, nausea, and vomiting. She is found to have multiple gallstones by ultrasonography and an elevated lipase level. Common bile duct was felt to be within normal limits. The patient was admitted to the surgical service for gallstone pancreatitis. The patient was taken to the operating room by Dr. Hernesto King on 11/28/2017 where she underwent laparoscopic cholecystectomy. She was found to have an acutely inflamed gallbladder. A drain was left in. Postoperatively she did well, had no complications. Diet was advanced and she tolerated this well. Pain was adequately managed. By the second postoperative day she was felt to receive maximum benefit from the hospitalization and was discharged home. DISPOSITION: The patient is discharged home to the care of the family. FOLLOW UP: [facility] in 1-2 weeks; anticipate some drainage from her drain site and take Tylenol and Motrin p.r.n. pain. DICTATING PHYSICIAN: KT IQBAL M.D. [id number] MARLONY#: [id number] ID: [id number] JOB#: [id number] ACCT: [id number] cc:KT IQBAL M.D. >
== END 2017-11-30 10:30 | disposition home or self-care (01) | DRG 417 ==
LOC: ER 09:57 → EH 14:22 → 2N 16:33
PROVIDERS: ADMIT Surgery; ATTEND Surgery
PROC: 0FT44ZZ Resection of Gallbladder, Percutaneous Endoscopic Approach (ICD-10-PCS; principal; 2017-11-28 12:30)
DX: K80.00 Calculus of gallbladder with acute cholecystitis without obstruction (principal); K85.10 Biliary acute pancreatitis without necrosis or infection; R10.13 Epigastric pain; I10 Essential (primary) hypertension
CPT/HCPCS: 36415; 71045; 76705; 790; 80053; 81001; 83690; 84484; 85025; 85027; 87070; 87075; 87205; 88304; 93005; 93010; 96361; 96374; 96376; 99285; J0131; J0330; J1100; J1170; J1644; J1885; J2250; J2270; J2405; J2543; J2704; J3010; J3490; J7030; S0028

== ENCOUNTER → 2019-05-26 | Outpatient (CLI) | payer BC ==
--- NOTE | 2019-05-26 15:18 | WOMENS IMAGING REPORT ---
EXAM DESCRIPTION: BILAT SCREENING MAMMO W/CAD COMPLETED DATE/TIME: 05/26/2019 10:48 am REASON FOR STUDY: Z12.31 SCREENING MAMMO Z12.31 ENCNTR SCREEN MAMMOGRAM FOR MALIGNANT NEOPLASM OF B RE COMPARISON: Multiple since 2008 EXAM PARAMETERS: Standard craniocaudal and mediolateral oblique views of each breast recorded using digital acquisition. Read with the assistance of CAD. .[facility] - [employer]ender Version 9.2 LIMITATIONS: None. FINDINGS: No suspicious masses, suspicious calcifications or architectural distortion. No areas of c oncern. IMPRESSION: Negative MAMMOGRAM. BIRADS 1 BREAST DENSITY: c. The breasts are heterogeneously dense, which may obscure small masses. BIRAD: ASSESSMENT: 1 NEGATIVE RECOMMENDATION: ROUTINE SCREENING Please continue yearly bilateral screening mammography/tomosynthesis in May 2020. COMMENT: The patient has been notified of the results by letter per [place] requirements. Additional no tification policies are in place for contacting patient with suspicious or incomplete findings. Quality ID #[id number]: The [employer] recommends an annual screening mammogram for women aged 40 years or over. This facility utilizes a reminder system to ensure that all patients receive reminder letters, and/or direct phone calls for appointments. This includes reminders for routine scr eening mammograms, diagnostic mammograms, or other Breast Imaging Interventions when appropriate. Th is patient will be placed in the appropriate reminder system. TECHNICAL DOCUMENTATION: FINDING NUMBER: (1) ASSESSMENT: (1) JOB ID: [id number] [employer]- All Rights Reserved Reading location - IP/workstation name: [email or web address]
== END ==
LOC: WI 10:35
PROVIDERS: ATTEND Obstetrics & Gynecology
DX: Z12.31 Encounter for screening mammogram for malignant neoplasm of breast (principal)
CPT/HCPCS: 77067

== ENCOUNTER → 2020-06-05 | Outpatient (CLI) | payer BC ==
--- NOTE | 2020-06-05 15:24 | WOMENS IMAGING REPORT ---
EXAM DESCRIPTION: 3D SCREENING MAMMO BILAT IMAGES COMPLETED DATE/TIME: 06/05/2020 9:37 am REASON FOR STUDY: Z12.31 ENCNTR SCREEN MAMMOGRAM FOR MALIGNANT NEOPLASM OF BREAST Z12.31 ENCNTR SCR EEN MAMMOGRAM FOR MALIGNANT NEOPLASM OF [place]H COMPARISON: 05/26/2019 and 10/20/2017. EXAM PARAMETERS: Views: Standard craniocaudal and mediolateral oblique views of each breast recorded using digital acquisition and breast tomosynthesis. Read with the assistance of CAD. .[facility] - [employer] Version 9.2 LIMITATIONS: None. FINDINGS: No suspicious masses, suspicious calcifications or architectural distortion. No areas of c oncern. IMPRESSION: NEGATIVE MAMMOGRAM. BIRADS 1. BREAST DENSITY: c. The breasts are heterogeneously dense, which may obscure small masses. BIRAD: ASSESSMENT: 1 NEGATIVE RECOMMENDATION: ROUTINE SCREENING COMMENT: The patient has been notified of the results by letter per MQSA requirements. Additional no tification policies are in place for contacting patient with suspicious or incomplete findings. Quality ID #[id number]: The [employer] recommends an annual screening mammogram for women aged 40 years or over. This facility utilizes a reminder system to ensure that all patients receive reminder letters, and/or direct phone calls for appointments. This includes reminders for routine scr eening mammograms, diagnostic mammograms, or other Breast Imaging Interventions when appropriate. Th is patient will be placed in the appropriate reminder system. TECHNICAL DOCUMENTATION: FINDING NUMBER: (1) ASSESSMENT: (1) JOB ID: [id number] [employer]- All Rights Reserved Reading location - IP/workstation name: [email or web address]
== END ==
LOC: WI 09:17
PROVIDERS: ATTEND Student in an Organized Health Care Education/Training Program
DX: Z12.31 Encounter for screening mammogram for malignant neoplasm of breast (principal)
CPT/HCPCS: 77063; 77067